=== PATIENT | female | born 1985 | race Caucasian/White ===

== ENCOUNTER 2017-03-06 22:17 | Emergency (ER) | payer OTHER ==
[~2017-03-06] VITALS: Ht 157.5 cm; Wt 62.1 kg
--- NOTE | 2017-03-07 00:34 | ED GI/GU/ABDOMINAL COMPLAINT ---
History of Present Illness General Chief Complaint: Abdominal Pain/Flank Pain Stated Complaint: RUQ PAIN X 3 DAYS. 33 WKS PREG Source: patient Exam Limitations: no limitations Vital Signs & Intake/Output Vital Signs & Intake/Output Vital Signs Date Time Temp Pulse Resp B/P B/P Pulse O2 O2 Flow FiO2 Mean Ox Delivery Rate 03/07 0059 98.5 82 20 113/67 97 Room Air 03/07 0019 Room Air 03/06 2221 97.2 91 18 111/76 99 Room Air ED Intake and Output 03/07 0000 03/06 1200 Intake Total Output Total Balance Patient 137 lb Weight Weight Estimated Measurement Method Allergies Coded Allergies: NO KNOWN ALLERGIES (06/23/10) Reconcile Medications No Known Home Medications Triage Note: PT TO ER C/C RUQ PAIN X FEW WEEKS, CONSTANT X 3 DAYS. HAS OUTPATIENT ABD US SCHEDULED FOR SATURDAY, STATES PAIN IS WORSENING. + NAUSEA. PATIENT IS 33 WKS , DUE DATE 04/19. STATES SHE IS FEELS GOOD MOVEMENT. SPOKE WITH GINGER FROM [facility], [place] TO CLEAR PT MEDICALLY IN ER Triage Nurses Notes Reviewed? yes ? Y Is pt currently ? No Onset: Abrupt Duration: week(s): Timing: recent history Quality/Severity: sharpness Location: right upper quadrant Radiation: no radiation HPI: 31-year-old female 33 weeks comes into emergency room with complaints of right upper abdominal pain. Patient was supposed to get an outpatient ultrasound of her gallbladder tomorrow morning however it was canceled. She had blood work done by her [employer] doctor today. She denies any fever chills vomiting or changes in bowel movements. Denies any urinary symptoms. Denies any vaginal bleeding or leakage of fluid. She feels the baby moving. She comes in [facility] for [facility]. (Isauro Grubbs) Past History Travel History Traveled to [place] past 21 day No Medical History Any Pertinent Medical History? none Surgical History Surgical History: none Psychosocial History What is your primary language Kazakh Tobacco Use: Never used Family History Hx Contributory? No (Isauro Grubbs) Review of Systems Review of Systems Constitutional: Reports: no symptoms. EENTM: Reports: no symptoms. Respiratory: Reports: no symptoms. Cardiovascular: Reports: no symptoms. GI: Reports: see HPI. Genitourinary: Reports: no symptoms. Musculoskeletal: Reports: no symptoms. Skin: Reports: no symptoms. Neurological/Psychological: Reports: no symptoms. Hematologic/Endocrine: Reports: no symptoms. Immunologic/Allergic: Reports: no symptoms. All Other Systems: Reviewed and Negative (Isauro Grubbs) Physical Exam Physical Exam General Appearance: well developed/nourished, no apparent distress, alert Head: atraumatic, normal appearance Eyes: Bilateral: normal appearance. Ears, Nose, Throat, Mouth: hearing grossly normal, moist mucous membrane Neck: normal inspection Respiratory: no respiratory distress Cardiovascular: regular rate/rhythm Gastrointestinal: soft, tenderness (RUQ) Back: normal inspection Extremities: normal range of motion Neurologic/Psych: awake, alert, oriented x 3, normal gait Skin: intact, normal color Core Measures ACS in differential dx? No Sepsis Present: No Sepsis Focused Exam Completed? No (Isauro Grubbs) Progress Differential Diagnosis: biliary colic, bowel obstruction, cholecystitis, gastritis, pancreatitis, PID/cervicitis, peptic ulcer, PUD/GERD, UTI/pyelo Plan of Care: Orders Procedure Date/time Status LIPASE 03/07 31 Complete COMPREHENSIVE METABOLIC PANEL 03/07 31 Complete CBC WITHOUT DIFFERENTIAL 03/07 31 Complete AMYLASE 03/07 31 Complete URINALYSIS 03/06 2233 Complete Laboratory Tests 03/07/17 0054: Anion Gap 8, Estimated GFR > 60, BUN/Creatinine Ratio 8.0, Glucose 85, Calcium 9.2, Total Bilirubin 0.5, AST 27, ALT 34, Alkaline Phosphatase 104, Total Protein 6.3, Albumin 3.2 L, Globulin 3.1, Albumin/Globulin Ratio 1.0 L, Amylase 76, Lipase 79, CBC w Diff NO MAN DIFF REQ, RBC 3.73 L, MCV 88.3, MCH 30.6, RDW 12.1, MPV 7.8, Gran % 57.2, Lymphocytes % 32.2, Monocytes % 8.6, Eosinophils % 1.5, Basophils % 0.5, Absolute Granulocytes 5.0, Absolute Lymphocytes 2.8, Absolute Monocytes 0.8 H, Absolute Eosinophils 0.1, Absolute Basophils 0, PUBS MCHC 34.6 03/06/176: Urine Color YEL, Urine Clarity CLEAR, Urine pH 7.5, Ur Specific [place] 1.015, Urine Protein NEG, Urine Ketones NEG, Urine Nitrite NEG, Urine Bilirubin NEG, Urine Urobilinogen 0.2, Ur Leukocyte Esterase NEG, Ur Microscopic EXAM NOT REQUIRED, Urine Hemoglobin NEG, Urine Glucose NEG Initial ED EKG: none (Isauro Grubbs) Departure Departure Condition: Stable Referrals: Anahi Tran MD (PCP/Family) Departure Forms: Customer Survey General Discharge Information Prescriptions: Current Visit Scripts No Known Home Medications (Isauro Grubbs) Departure Time of Disposition: 157 Disposition: HOME OR SELF CARE Clinical Impression Primary Impression: Biliary colic Secondary Impressions: Additional Instructions: Reschedule your ultrasound PA/ACID PURIFIER Co-Sign Statement Statement: ED Attending supervision documentation- I saw and evaluated the patient. I have also reviewed all the pertinent lab results and diagnostic results. I agree with the findings and the plan of care as documented in the PA's/ACID PURIFIER's documentation. x I have reviewed the ED Record and agree with the PA's/ACID PURIFIER's documentation. [] Additions or exceptions (if any) to the PAs/ACID PURIFIER's note and plan are summarized below: [] (Haley MATA,Casey)
[2017-03-07 01:01] LABS: ABSOLUTE BASOPHIL COUNT 0 /CUMM (0.0-0.2); ABSOLUTE EOSINOPHIL COUNT 0.1 /CUMM (0.0-0.7); ABSOLUTE LYMPH COUNT 2.8 /CUMM (1.2-3.4); ABSOLUTE MONOCYTE COUNT 0.8 /CUMM (0.10-0.60); BASOPHIL % 0.5 % (0.0-2.0); EOSINOPHIL % 1.5 % (0-5); GRANULOCYTE % 57.2 % (42.2-75.2); HEMATOCRIT 32.9 % (37-47); MEAN CORPUSCULAR HGB 30.6 PG (27.0-31.0); MEAN CORPUSCULAR HGB CONC 34.6 G/DL (33.0-37.0); MEAN CORPUSCULAR VOLUME 88.3 FL (81.0-99.0); MEAN PLATELET VOLUME 7.8 FL (7.4-10.4); PLATELET COUNT 209 /CUMM (130-400); RBC DISTRIBUTION WIDTH 12.1 % (11.5-14.5); RED BLOOD CELL CT 3.73 /CUMM (4.20-5.40); WHITE BLOOD CELL COUNT 8.8 /CUMM (4.8-10.8)
[2017-03-07 02:03] VITALS: BP 112/78
== END 2017-03-07 02:03 ==
LOC: ERH 22:17
PROVIDERS: Physician Assistant Medical
DX: O26.613 Liver and biliary tract disorders in pregnancy, third trimester (principal); K80.50 Calculus of bile duct without cholangitis or cholecystitis without obstruction; Z3A.33 33 weeks gestation of pregnancy
CPT/HCPCS: 81003

== ENCOUNTER 2017-04-16 17:12 | Inpatient (IN) | payer OTHER ==
[~2017-04-16] VITALS: Ht 157.5 cm; Wt 64.0 kg
[2017-04-16 18:25] LABS: ABSOLUTE BASOPHIL COUNT 0 /CUMM (0.0-0.2); ABSOLUTE EOSINOPHIL COUNT 0.1 /CUMM (0.0-0.7); ABSOLUTE GRANULOCYTE CT 5.7 /CUMM (1.4-6.5); ABSOLUTE LYMPH COUNT 2.2 /CUMM (1.2-3.4); ABSOLUTE MONOCYTE COUNT 0.7 /CUMM (0.10-0.60); BASOPHIL % 0.4 % (0.0-2.0); EOSINOPHIL % 0.7 % (0-5); GRANULOCYTE % 65.5 % (42.2-75.2); HEMATOCRIT 36.6 % (37-47); MEAN CORPUSCULAR HGB 30.4 PG (27.0-31.0); MEAN CORPUSCULAR HGB CONC 34.3 G/DL (33.0-37.0); MEAN CORPUSCULAR VOLUME 88.6 FL (81.0-99.0); MEAN PLATELET VOLUME 8.7 FL (7.4-10.4); PLATELET COUNT 205 /CUMM (130-400); RBC DISTRIBUTION WIDTH 13.6 % (11.5-14.5); RED BLOOD CELL CT 4.13 /CUMM (4.20-5.40); WHITE BLOOD CELL COUNT 8.7 /CUMM (4.8-10.8)
[2017-04-16 18:44] VITALS: BP 122/86
[2017-04-16] MEDS ORDERED: PRENATAL TABLE1 EAC2 PO (18:45)
[2017-04-16] MEDS ORDERED: FERRALET 90 TA1 EACH PO (18:46)
--- NOTE | 2017-04-17 01:10 | History & Physical ---
General Information and HPI MD Statement: I have seen and personally examined SOFIE LARSON and documented this H&P. Source of Information: patient, old records Exam Limitations: no limitations History of Present Illness: The patient is a 32 year old at 39 weeks and 5 days gestation who presented with a chief complaint of LOF 6p yesterday, clr. GBS pos. AP care c/b A neg, s/p Rhogam @ 28wks. 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 Last Menstrual Period: 07/13/16 Estimated Delivery Date: 04/19/17 Past aircraft cleaner History: non-contributory Medical History Hepatic: benign right liver lobe cyst Surgical History Pertinent Surgical History: none Past Family/Social History Psychosocial History Smoking Status: Never Smoked Exam & Diagnostic Data Last 24 Hrs of Vital Signs/I&O afeb Vital Signs Date Time Temp Pulse Resp B/P B/P Pulse O2 O2 Flow FiO2 Mean Ox Delivery Rate 04/16 1844 122/86 Intake & Output 04/17 0800 04/17 0000 04/16 1600 Intake Total Output Total Balance Patient 141 lb Weight Obstetric Exam Wgt Gained During : 27 lb Pelvimetry: adequate Dilation (cm): 1 Effacement (%): 50 Station: -2 Membranes: SROM Fluid: clear Fundal Height (cm): 39 Multiple Gestation? No Contractions: q1-3min Infant #1 - FHR Baseline: 120 Category: 1 Estimated Weight: 3200gr Presentation: vtx Patient for Induction? No Labs Blood Type & Rh: A neg Antibody Screen: neg Hct/Hgb & Platelets #1: 12.7/ 37.9, 221 Hct/Hgb & Platelets #2: 10.7/ 34.7, 210 Rubella: imm VDRL #1: neg VDRL #2: neg HbsAg: neg HIV #1: neg HIV #2 neg 1 Hr P 3 Hr P/ 143/ 102/ 54 Group B Strep: pos Initial Ultrasound: 09/10/16 siup 8+3 +FH Anatomy Ultrasound: 12/04/16 nl anatomy Genetic Testing: counsyl wnl hgb aa Assessment/Plan Assessment/Plan: 2 39WKS prom, gbs POS, on pcn in latent labor -admit to L&D -PCN gbs proph -monitoring -ANSVD As Ranked By This Provider Problem List: 1. Core Measures Venous Thromboembolism VTE Risk Factors / No Mechanical VTE Prophylaxis d/t Early Ambulation No VTE Pharm Prophylaxis d/t LowRisk-No Interven Req'd
--- NOTE | 2017-04-17 15:36 | Labor & Delivery Summary ---
Delivery Summary Vaginal Delivery: Vaginal: vertex : : vacuum Station/Position at Karla: +2 STATION Indication: MATERNAL EXHAUTION Episiotomy/Lacerations: Episiotomy/Lacerations: 2 ND DEGREER Type: MIDLINE Repair: 3-0 POLYSORB Anesthesia: BUPIVICAINE 8CC Placenta: Placenta: spontanteous, NUCHAL ARM, rop WITH ARM Anesthesia: block Baby's Weight: 7# 13OZ Apgars - 1 Min: 9 Apgars - 5 Min: 9 Additional Comments: PUSHED ONLY 1 HOUR AFTER ALLOWED EPIDURAL TO BELL OFF HAD ANTERIOR LIP NUCHAL ARM
[2017-04-18 08:23] LABS: ABSOLUTE EOSINOPHIL COUNT 0 /CUMM (0.0-0.7); ABSOLUTE LYMPH COUNT 2.6 /CUMM (1.2-3.4); ABSOLUTE MONOCYTE COUNT 1.1 /CUMM (0.10-0.60); RED BLOOD CELL CT 3.17 /CUMM (4.20-5.40)
[2017-04-18 08:49] LABS: ABSOLUTE BASOPHIL COUNT 0 /CUMM (0.0-0.2); ABSOLUTE GRANULOCYTE CT 10.8 /CUMM (1.4-6.5); BASOPHIL % 0.3 % (0.0-2.0); EOSINOPHIL % 0.2 % (0-5); GRANULOCYTE % 74.3 % (42.2-75.2); MEAN CORPUSCULAR HGB 31.7 PG (27.0-31.0); MEAN CORPUSCULAR HGB CONC 34.4 G/DL (33.0-37.0); MEAN CORPUSCULAR VOLUME 92.1 FL (81.0-99.0); MEAN PLATELET VOLUME 9.3 FL (7.4-10.4); PLATELET COUNT 162 /CUMM (130-400); RBC DISTRIBUTION WIDTH 13.5 % (11.5-14.5)
[2017-04-18 08:50] LABS: HEMATOCRIT 29.1 % (37-47); WHITE BLOOD CELL COUNT 14.5 /CUMM (4.8-10.8)
--- NOTE | 2017-04-18 09:51 | PN- Post Delivery/GYN ---
Subjective Subjective: pt feeling well. amb / void / monica po. +bf. pain well controlled. Objective Last 24 Hrs of Vital Signs/I&O afeb, v/ss Vital Signs Date Time Temp Pulse Resp B/P B/P Pulse O2 O2 Flow FiO2 Mean Ox Delivery Rate 04/17 1318 99.5 Physical Exam: nad abd soft nt ff yobany mod lochia ext nt no ed Current Medications: Current Medications Sig/Clarence Start time Last Medication Dose Route Stop Time Status Admin Acetaminophen 650 MG Q4P PRN 04/17 1745 AC PO Acetaminophen 1,000 MG ONCE ONE 04/17 1315 DC 04/17 N/A 1 UNIT IV 04/17 1329 1318 Bupivacaine HCl 10 ML ONCE ONE 04/17 1530 DC 04/17 SC 04/17 1531 1450 Butorphanol Tartrate 1 MG Q4P PRN 04/16 2245 DC 04/16 IM 2245 Butorphanol Tartrate 1 MG Q4P PRN 04/16 2245 DC 04/16 IV 2245 Docusate Sodium 100 MG BID PRN 04/17 1745 AC PO Hydroxyzine HCl 50 MG AT BEDTIME NEED.. 04/17 1745 AC PO Ibuprofen 800 MG Q6P PRN 04/17 1745 AC 04/18 PO 0837 Lactated Ringer's 1,000 ML Q8H 04/16 2130 DC 04/17 IV 1131 Magnesium Hydroxide 30 ML DAILY PRN 04/17 1745 AC PO Methylergonovine 0.2 MG STAT STA 04/17 1528 DC 04/17 Maleate IM 04/17 1529 1515 Oxycodone/ 1 TAB Q3P PRN 04/17 1745 AC Acetaminophen PO Oxytocin 20 UNITS Q5H 04/17 1530 DC 04/17 Lactated Ringer's 1,000 ML IV 04/17 2029 1504 Oxytocin 30 UNITS PER PROTOCL 04/17 1130 DC 04/17 Lactated Ringer's 500 ML IV 04/17 2130 1131 Penicillin G 5 MU .STK-MED ONE 04/17 0959 DC Potassium IM 04/17 1000 Penicillin G 2.5 MU Q4H 04/16 2200 DC 04/17 Potassium IV 1400 Dextrose/Water 100 ML Senna 374 MG AT BEDTIME NEED.. 04/17 1745 AC PO Last 24 Hrs of Labs/Isaiah: Laboratory Tests 04/18/17 0605: CBC w Diff NO MAN DIFF REQ, RBC 3.17 L, MCV 92.1, MCH 31.7 H, MCHC 34.4, RDW 13.5, MPV 9.3, Gran % 74.3, Lymphocytes % 17.7 L, Monocytes % 7.5, Eosinophils % 0.2, Basophils % 0.3, Absolute Granulocytes 10.8 H, Absolute Lymphocytes 2.6, Absolute Monocytes 1.1 H, Absolute Eosinophils 0, Absolute Basophils 0 04/18/17 0600: Kleihauer Cells Cancelled 04/18/17 0600: Kleihauer Cells Cancelled Assessment/Plan Assessment/Plan ppd 1 s/p vavd, doing well -cont routine pp care -pain mgmt -start fe Attending MD Review Statement Attending Statement Attending MD Statement: examined this patient, discussed with family, discussed with nursing
[2017-04-19] MEDS ORDERED: IBUPROFEN800 M1 PO (10:21)
--- NOTE | 2017-04-19 10:21 | PN- Post Delivery/GYN ---
Subjective Subjective: feeling well Review of Systems Constitutional: Reports: no symptoms. Denies: chills, fever. EENTM: Denies: blurred vision, double vision, visual changes. Cardiovascular: Denies: chest pain. Respiratory: Denies: cough, short of breath. Gastrointestinal: Denies: diarrhea, nausea, vomiting. Genitourinary: Denies: dysuria. Neurological/Psychological: Denies: anxiety, depressed. Objective Last 24 Hrs of Vital Signs/I&O vss Physical Exam General Appearance Alert, Oriented X3, Cooperative, No Acute Distress Cardiovascular Regular Rate Lungs Clear to Auscultation Abdomen Soft, fundus firm Extremities No Edema Assessment/Plan Assessment/Plan ppd #2 vss afebrile Hct stable plan d/c home Problem List: 1. Attending MD Review Statement Attending Statement Attending MD Statement: examined this patient, discussed with family, discussed with nursing
== END 2017-04-19 11:01 | DRG 560 ==
LOC: CBCO 17:12 → GNO 17:50
PROVIDERS: Obstetrics & Gynecology
PROC: 0KQM0ZZ Repair Perineum Muscle, Open Approach (ICD-10-PCS; principal; 2017-04-17)
PROC: 10D07Z6 Extraction of Products of Conception, Vacuum, Via Natural or Artificial Opening (ICD-10-PCS; principal; 2017-04-17)
DX: O42.02 Full-term premature rupture of membranes, onset of labor within 24 hours of rupture (principal); O99.824 Streptococcus B carrier state complicating childbirth; O75.81 Maternal exhaustion complicating labor and delivery; O69.81X0 Labor and delivery complicated by cord around neck, without compression, not applicable or unspecified; O70.1 Second degree perineal laceration during delivery; O32.8XX0 Maternal care for other malpresentation of fetus, not applicable or unspecified; Z3A.39 39 weeks gestation of pregnancy; Z37.0 Single live birth
CPT/HCPCS: GNOP; GNOS; 36415; 81001; 84112; 86920; 86922; 87086; J0131; J7120